=== PATIENT | female | born 1960 | race Caucasian/White ===

== ENCOUNTER 2016-10-17 02:18 | Inpatient (IN) ==
[2016-10-12 15:59] LABS: MANUAL DIFF NEEDED? NO; URINE SOURCE CLEAN CATCH
[2016-10-12 16:02] LABS: BILIRUBIN URINE NEGATIVE (NEGATIVE); BLOOD URINE NEGATIVE (NEGATIVE); COLOR YELLOW; GLUCOSE URINE NEGATIVE (NEGATIVE); LEUKOCYTES URINE NEGATIVE (NEGATIVE); NITRITE URINE NEGATIVE (NEGATIVE); PH URINE 5.5; PROTEIN URINE TRACE mg/dL (NEGATIVE); SP GRAVITY URINE 1.029; TURBIDITY URINE HAZY (CLEAR); URINE MICRO REVIEW NEEDED? YES; UROBILINOGEN URINE NORMAL (NORMAL)
[2016-10-12 16:04] LABS: BASO% 0.9 % (0.0-0.8); EOS# 0.22 X1000 (0.0-0.7); EOS% 3.2 % (0.0-10.0); HEMATOCRIT 34.7 % (37.0-47.0); HEMOGLOBIN 11.3 g/dL (12.0-16.0); LYMPH# 2.12 X1000 (1.2-3.4); LYMPH% 30.6 % (20.5-51.1); MCH 26.6 PG (27-31); MCHC 32.6 g/dL (33-37); MCV 81.6 FL (81-99); MONO# 0.55 X1000 (0.11-0.59); MONO% 7.9 % (1.7-9.3); MPV 10.8 FL (7.4-10.4); NEUT% 57.4 % (42.2-75.2); PLT 326 X1000 (130-400); RBC 4.25 XMIL (4.2-5.4)
[2016-10-12 16:06] LABS: UR EPITHELIAL CELLS <10 /HPF (<10); URINE BACTERIA 1+ /HPF; URINE RBC <10 /HPF (<10); URINE WBC <10 /HPF (<10)
[2016-10-12 16:08] LABS: PROTIME 10.5 Seconds (9.2-11.7)
[2016-10-12 16:18] LABS: AGAP 13; BUN 17 mg/dL (8-22); CALCIUM 9.6 mg/dL (8.8-10.2); CHLORIDE 102 mmol/L (98-107); COSMO 281; SODIUM 140 mmol/L (136-145); TCO2 25 mmol/L (25-35)
--- NOTE | 2016-10-12 16:22 | EKG Report ---
Test Performed on : 10/12/2016 3:35:52 PM Test Reason : PAT Blood Pressure : / mmHG Vent. Rate : 071 BPM Atrial Rate : 071 BPM P-R Int : 108 ms QRS Dur : 076 ms QT Int : 384 ms P-R-T Axes : 002 -01 004 degrees QTc Int : 417 ms Sinus rhythm. with short [place] Otherwise normal ECG No previous ECGs available Confirmed by Jorge RODRIGUEZ, Alex Ruiz ([id number]) on 10/14/2016 9:55:54 AM
[2016-10-12 16:33] LABS: URINE CRYSTALS CA OXALATE PRESENT
[2016-10-17] MEDS ORDERED: COLACE ONE ×2 (05:40→06:23)
[2016-10-17] MEDS ORDERED: LYRICA ONE (05:41)
[2016-10-17] MEDS ORDERED: REGLAN ONE ×2 (05:41→05:42)
[2016-10-17] MEDS ORDERED: PEPCID ONE (05:41)
[2016-10-17] MEDS ORDERED: LR 1,000 ML ONE (05:41)
[2016-10-17] MEDS ORDERED: KEFZOL 2 GM/D5W 2 GM/50 ML IVPB ONE (05:44)
[2016-10-17] MEDS ORDERED: NEOSPORIN G.U. IRRIGANT ONE (06:37)
[2016-10-17] MEDS ORDERED: MARCAINE 0.25% PF/EPI 1:200,000 ONE (06:38)
[2016-10-17] MEDS ORDERED: VANCOMYCIN ONE (06:38)
[2016-10-17] MEDS ORDERED: SODIUM CHLORIDE 0.9% ONE (06:38)
[2016-10-17] MEDS ORDERED: TORADOL ONE (06:38)
[2016-10-17] MEDS ORDERED: DURAMORPH ONE (06:38)
[2016-10-17] MEDS ORDERED: CLAVE SECONDARY SET 11953 ONE (06:39)
[2016-10-17] MEDS ORDERED: CYKLOKAPRON 1,000 MG/NS 1,000 MG/100 ML IVPB ONE ×2 (06:39)
[2016-10-17] MEDS ORDERED: EXPAREL 1.3% ONE (06:39)
[2016-10-17] MEDS ORDERED: DIPRIVAN 1% 0 MG/0 ML BOTTLE ONE (06:46)
--- NOTE | 2016-10-17 07:18 | HISTORY AND PHYSICAL ---
CHIEF COMPLAINT: Left knee pain. HISTORY OF PRESENT ILLNESS: is a 55-year-old, white female who has experienced progressive left knee pain for some time. No history of injury. Her pain is worse with weightbearing and activity. Radiographic evaluation of the left knee reveals findings consistent with advanced degenerative joint disease. Despite conservative therapy, she still has a significant reduction in her ability to perform her normal daily activities. At this time, she will be admitted for a left total knee arthroplasty. PRIMARY CARE PROVIDER: Jaison Modi MD. ALLERGIES: 1. Sulfa. 2. Adhesive tape. PAST MEDICAL HISTORY: 1. Osteoarthritis. 2. Hypertension. 3. Hypothyroidism. 4. Obesity. 5. Lower extremity edema. PAST SURGICAL HISTORY: 1. Hysterectomy. 2. Cholecystectomy. 3. Gastric bypass surgery. SOCIAL HISTORY: The patient is a nonsmoker. She is and maintains a home with her . MEDICATIONS: 1. Potassium 20 mEq daily. 2. Synthroid 50 mcg by mouth daily. 3. Lasix 20 mg daily. 4. Ergocalciferol 1.25 mg daily. 5. Vitamin B12 injection 1000 mcg as directed. 6. Amlodipine/valsartan/hydrochlorothiazide combination 10/160/25 one tablet by mouth daily. REVIEW OF SYSTEMS: HEENT: No known history of stroke or cerebrovascular disease. She is treated for hypothyroidism. Cardiac: She is treated for hypertension. No history of coronary artery disease. Denies chest pain or other anginal equivalents. Pulmonary: The patient is a nonsmoker with no chronic lung disease. Gastrointestinal: She has previously had a gastric bypass surgery. Genitourinary: Denies recent kidney or bladder infection or dysfunction. Neurological: No extremity radicular pain, weakness, or paresthesia. Musculoskeletal: She is here for management of her left knee arthritis. Other: She is treated for obesity. PHYSICAL EXAMINATION: GENERAL: AO x3. No acute distress. She is able to answer all questions. HEENT: Head is normocephalic and atraumatic. Pupils are equal, round, react to light. Nares are patent. Throat without exudate. NECK: Supple. HEART: Regular rate and rhythm. No murmurs, gallops, or rubs. LUNGS: Clear to auscultation bilaterally. ABDOMEN: Round. Bowel sounds are present. GENITOURINARY: Not examined. NEUROLOGICAL: Gross motor function is intact, as well as sensation. MUSCULOSKELETAL: Left knee, no deformity, edema, or ecchymosis is noted. Neurovascular status intact with good peripheral pulse. IMPRESSION: Degenerative joint disease of the left knee. PLAN: Left total knee arthroplasty. The risks and benefits of surgery were explained to the patient including the risks of anesthesia, , bleeding, infection, damage to tendons, ligaments, nerves, and blood vessels. The possibility of blood clots and other imponderables were discussed, and the patient wishes to proceed with operative management at this time. Dictated by MANE Baer for Monty Sandhu MD cc: MANE Baer MD
[2016-10-17] MEDS ORDERED: NORCO-10 PO PRN (07:19)
[2016-10-17] MEDS ORDERED: MORPHINE IV PRN (07:20)
[2016-10-17] MEDS ORDERED: NORVASC PO SCH (07:30)
[2016-10-17 08:47] LABS: URINE SOURCE CATH
[2016-10-17 08:58] LABS: BILIRUBIN URINE NEGATIVE (NEGATIVE); BLOOD URINE NEGATIVE (NEGATIVE); COLOR YELLOW; GLUCOSE URINE NEGATIVE (NEGATIVE); LEUKOCYTES URINE NEGATIVE (NEGATIVE); NITRITE URINE NEGATIVE (NEGATIVE); PH URINE 5.5; PROTEIN URINE NEGATIVE (NEGATIVE); SP GRAVITY URINE 1.023; UROBILINOGEN URINE NORMAL (NORMAL)
[2016-10-17] MEDS ORDERED: ERGOCALCIFEROL 1.25 MG PO SCH (09:00)
[2016-10-17 09:06] LABS: TURBIDITY URINE CLEAR (CLEAR)
[2016-10-17 09:07] LABS: URINE MICRO REVIEW NEEDED? YES
[2016-10-17 09:15] LABS: UR EPITHELIAL CELLS <10 /HPF (<10); URINE BACTERIA NEGATIVE /HPF; URINE WBC <10 /HPF (<10)
[2016-10-17 09:16] LABS: URINE CRYSTALS CA OXALATE PRESENT
[2016-10-17] MEDS ORDERED: FENTANYL ONE (09:59)
[2016-10-17] MEDS ORDERED: DIPRIVAN 1% ONE (09:59)
[2016-10-17] MEDS ORDERED: ZOFRAN ONE (10:20)
[2016-10-17] MEDS ORDERED: QUELICIN (DOSE) ONE (10:20)
[2016-10-17] MEDS ORDERED: DECADRON ONE (10:20)
[2016-10-17] MEDS ORDERED: XYLOCAINE-MPF 2% ONE (10:20)
[2016-10-17] MEDS ORDERED: LR 2,000 ML ONE (10:20)
[2016-10-17] MEDS ORDERED: OFIRMEV 1000 MG/ISOTONIC SOLN 1,000 MG/100 ML BOTTLE ONE (10:20)
[2016-10-17] MEDS ORDERED: ROBINUL ONE (10:20)
[2016-10-17] MEDS: NS 1,000 ML ONE ×2 (10:34→11:42)
--- NOTE | 2016-10-17 10:48 | Diag Imaging Result Document ---
PROCEDURE NAME: KNEE 1-2 VIEWS-LEFT - 10/17/2016 LEFT KNEE, TWO VIEWS: FINDINGS: There has been recent orthopaedic replacement of the left knee. There is good alignment to the femoral and tibial components. There are anterior skin greta and there is a superior surgical drain. No fracture. No dislocation. IMPRESSION: Good alignment following orthopaedic replacement of the left knee.
--- NOTE | 2016-10-17 11:18 | OPERATIVE NOTE ---
PROCEDURE DATE: 10/17/2016 PREOPERATIVE DIAGNOSIS: Degenerative joint disease, left knee. POSTOPERATIVE DIAGNOSIS: Degenerative joint disease, left knee. PROCEDURE: Left total knee replacement. SURGEON: Beau Sandhu MD. TEXTURING MACHINE FIXER: HILLARY Andrea. ANESTHESIA: General. COMPLICATION: None. PROCEDURE IN DETAIL: A 55-year-old female with DJD about the left knee presents for left knee replacement. Risks, benefits, and no guarantees were discussed, and she is willing to proceed. She was taken the operating room and satisfactory anesthesia obtained. The left knee was prepped and draped in usual sterile fashion. A time-out was taken to confirm operative site, procedure, and patient. The left leg was wrapped with an Esmarch and tourniquet inflated to 400 mmHg. A midline incision was made over the front of the knee, followed by a quadriceps tendon-sparing arthrotomy. The patella was everted and resurfaced with freehand technique and sized to a size 32 dome patella. The drill paddle was used to prepare for the patellar implant. With the knee flexed, an intramedullary hole was made in the distal femur and the distal femoral cutting block secured in 5 degrees of valgus. Distal femoral resection was made. Tibial resection was then made just for fresh cut and due to the softness of the bone, decision made to proceed with a stemmed prosthesis on both the femoral and tibial side. The Sigma Arimazuy system was utilized and the tibia reamed up to a size 16 reamer. The tibia was then broached up to a 45 metaphyseal MBT tibial sleeve. A size 2.5 tibial base plate was then selected and the tibial implant trial made with a 16 x 75 stem attached to the 45 metaphyseal sleeve and a 2.5 rotating platform baseplate. After preparation of the tibia, the spacer block was used to position the femoral cutting block in proper rotation and the femoral cutting block attached. The femur was reamed up to an 18 stem and then broached with the metaphyseal femoral sleeve up to a 48 sleeve. Distal femoral cutting block was then secured and the anterior, posterior, and chamfer cuts sequentially made in the primary position. The femur was sized to a 2.5, TC3 posterior stabilized femoral stem. The femoral component consisted of a 2.5 left posterior stabilized Sigma TC3 femoral component, connected to a 75 x 18 stem with a 48 femoral porous sleeve. A 5-degree adapter bolt was utilized for this. Trialing was then undertaken with a 12.5, thick poly with good range of motion and stability. The trial implants were removed and the permanent implants built on the back table and secured. The bony surfaces were thoroughly irrigated with pulsatile lavage. Cement was then used to cement the tibial and femoral components in place, followed by the patella. Excess cement was removed with a [place] elevator. While the joint cement hardened, the joint capsule was injected with Exparel for pain management and a Hemovac drain placed. The arthrotomy was then copiously irrigated with irrigant and a 12.5 rotating platform poly secured in the tibial tray and the knee reduced. Final range of motion was 0-120 degrees with midline patellar tracking. The arthrotomy was then closed over the drain with #1 Vicryl in the arthrotomy, 2-0 Vicryl in the subcutaneous tissue, and skin greta on the skin edges. Sterile dressings completed the closure and the patient was recovered from anesthesia and transferred to the recovery room in stable condition. No intraoperative complications were noted. Instrument count and sponge count were correct at time of closure. cc: Monty Sandhu MD
[2016-10-17] MEDS: COLACE PO SCH ×2 (11:40→20:37)
[2016-10-17] MEDS: SYNTHROID PO SCH (11:41)
[2016-10-17] MEDS: LASIX PO SCH (11:41)
[2016-10-17] MEDS: KLOR-CON PO SCH (11:41)
[2016-10-17] MEDS: NORCO-10 PO PRN ×2 (14:32→20:37)
[2016-10-17] MEDS: KEFZOL 1 GM/D5W 1 GM/50 ML IVPB IV SCH ×2 (15:50→23:28)
[2016-10-17] MEDS: NS 1,000 ML IV SCH ×2 (18:34→20:38)
[2016-10-17] MEDS: PERIDEX MT SCH (20:37)
[2016-10-18] MEDS: NS 1,000 ML IV SCH ×3 (04:31→21:06)
[2016-10-18] MEDS: XARELTO PO SCH (05:49)
[2016-10-18] MEDS: MORPHINE IV PRN ×3 (05:49→10:44)
[2016-10-18 06:33] LABS: HEMATOCRIT 29.8 % (37.0-47.0); HEMOGLOBIN 9.3 g/dL (12.0-16.0)
[2016-10-18 06:49] LABS: AGAP 14; BUN 15 mg/dL (8-22); CALCIUM 8.5 mg/dL (8.8-10.2); CHLORIDE 99 mmol/L (98-107); COSMO 278; POTASSIUM 4.6 mmol/L (3.5-5.1); SODIUM 137 mmol/L (136-145); TCO2 24 mmol/L (25-35)
[2016-10-18] MEDS: KLOR-CON PO SCH (09:09)
[2016-10-18] MEDS: COLACE PO SCH ×2 (09:09→21:06)
[2016-10-18] MEDS: SYNTHROID PO SCH (09:09)
[2016-10-18] MEDS: PERIDEX MT SCH ×2 (09:09→21:06)
[2016-10-18] MEDS: LASIX PO SCH ×2 (09:10→09:14)
[2016-10-18] MEDS: ANTIVERT PO PRN (13:21)
[2016-10-18] MEDS: PERCOCET-10 PO PRN ×2 (14:12→21:07)
[2016-10-18] MEDS: PHENERGAN PO PRN ×2 (15:27→21:06)
[2016-10-19] MEDS: PERCOCET-10 PO PRN ×5 (01:48→22:26)
[2016-10-19] MEDS: PHENERGAN PO PRN ×4 (01:49→18:14)
[2016-10-19 06:00] LABS: HEMATOCRIT 26.4 % (37.0-47.0); HEMOGLOBIN 8.1 g/dL (12.0-16.0)
[2016-10-19] MEDS: NS 1,000 ML IV SCH (06:18)
[2016-10-19] MEDS: XARELTO PO SCH (06:59)
[2016-10-19] MEDS ORDERED: HYDROCHLOROTHIAZIDE PO SCH (07:45)
[2016-10-19] MEDS ORDERED: DIOVAN PO SCH (07:45)
[2016-10-19] MEDS: LASIX PO SCH ×2 (09:33→09:35)
[2016-10-19] MEDS: COLACE PO SCH ×2 (09:33→22:26)
[2016-10-19] MEDS: SYNTHROID PO SCH (09:33)
[2016-10-19] MEDS: KLOR-CON PO SCH (09:33)
[2016-10-19] MEDS: PERIDEX MT SCH ×2 (09:34→22:26)
[2016-10-19 11:29] LABS: MANUAL DIFF NEEDED? NO
[2016-10-19 11:43] LABS: BASO% 0.5 % (0.0-0.8); EOS% 2.6 % (0.0-10.0); HEMATOCRIT 25.6 % (37.0-47.0); HEMOGLOBIN 7.9 g/dL (12.0-16.0); IMM GRAN# 0.04 X1000 (0.0-0.04); IMM GRAN% 0.3 % (0.0-0.5); LYMPH# 1.47 X1000 (1.2-3.4); LYMPH% 12.5 % (20.5-51.1); MCH 25.9 PG (27-31); MCHC 30.9 g/dL (33-37); MCV 83.9 FL (81-99); MONO# 1.23 X1000 (0.11-0.59); MONO% 10.5 % (1.7-9.3); MPV 10.4 FL (7.4-10.4); NEUT% 73.6 % (42.2-75.2); PLT 226 X1000 (130-400); RBC 3.05 XMIL (4.2-5.4)
[2016-10-19 11:51] LABS: ALBUMIN 3.4 g/dL (3.5-5.0); CALCIUM 8.1 mg/dL (8.8-10.2); POTASSIUM 4.3 mmol/L (3.5-5.1); TOTAL BILIRUBIN 0.67 mg/dL (0.20-1.00); TOTAL PROTEIN 6.1 g/dL (6.3-8.3)
[2016-10-19] MEDS ORDERED: DUONEB (A & A) INH PRN (12:58)
[2016-10-19] MEDS ORDERED: VANCOMYCIN IV PER PHARMACY MISC SCH (13:00)
--- NOTE | 2016-10-19 13:57 | Diag Imaging Result Document ---
PROCEDURE NAME: CHEST-PORTABLE - 10/19/2016 SINGLE FRONTAL RADIOGRAPH OF THE CHEST: COMPARISON: None available. FINDINGS: Inspiration is suboptimal. The lungs are grossly clear. There is no definite pleural fluid collection. The cardiac silhouette appears prominent, but this may be due to magnification from AP technique. Central vasculature is unremarkable. IMPRESSION: Low lung volumes and somewhat prominent cardiac silhouette that may be due to magnification.
[2016-10-19 14:08] LABS: ALLEN TEST NO; BE 0.1 mmoll (-3.0-3.0); BLOOD TYPE ARTERIAL; DRAW SITE R BRACHIAL; METHB 1.4 % (0.0-1.5); O2(CT) 10.5 mL/dL (15.0-23.0); PCO2(98.6) 39 mmHg (35-45); PO2(98.6) 74 mmHg (60-100); SAMPLE BLOOD; SAO2 97.7 % (95.0-100.0); THB 7.8 g/dL (11.5-17.4); pH(98.6) 7.41 (7.35-7.45)
[2016-10-19 14:09] LABS: MODALITY CANNULA
--- NOTE | 2016-10-19 14:35 | CONSULTATION ---
DATE OF CONSULTATION: 10/19/2016 CONSULTING PHYSICIAN: Dr. Sandhu with orthopedics. REASON FOR CONSULTATION: Fever and hypoxia. HISTORY OF PRESENT ILLNESS: is a 55-year-old female with a history of morbid obesity, hypertension, hypothyroidism, who is status post left total knee arthroplasty by Dr. Sandhu on 10/17/2016. She began having fevers last night around 9 o'clock. She measured 101 degrees Fahrenheit with a heart rate of 117. Currently her temperature is 101.4 degrees with a heart rate of 119, O2 saturations 92% on 3 L. Reports that she was also hypoxic this morning with an O2 saturation in the high 70s. The patient herself reports a little bit of shortness of breath and she has also been coughing up green sputum. She denies any overt chest pain. She has left lower extremity pain secondary to surgery, but nothing acutely worse. No pain or swelling in the right lower extremity. She denies any abdominal pain, nausea, or vomiting. We ordered blood work and she does have some mild leukocytosis noted to be 11.73, and she also has worsening anemia. Currently, she is resting in bed comfortably without distress. We have been asked to follow along for further treatment and evaluation. PAST MEDICAL HISTORY: 1. Morbid obesity. 2. Hypothyroidism. 3. Hypertension. 4. Osteoarthritis. 5. Chronic lower extremity edema on Lasix. PAST SURGICAL HISTORY: Hysterectomy, cholecystectomy, gastric bypass surgery and now with left knee arthroplasty. HOME MEDICATIONS: 1. Vitamin D 1.25 mg daily. 2. Lasix 20 mg daily. 3. Synthroid 50 mcg daily. 4. Potassium 20 mEq p.o. daily. 5. Vitamin B 12 1000 mcg as directed. 6. Amlodipine/valsartan/hydrochlorothiazide combination as directed daily. SOCIAL HISTORY: Patient denies tobacco, alcohol or drug use. She is . is at the bedside. FAMILY HISTORY: Noncontributory. REVIEW OF SYSTEMS: Fourteen-point review of systems obtained and found to be negative with the exception of the HPI. PHYSICAL EXAMINATION: Vital Signs: Blood pressure is 113/58, heart rate 119, respiratory rate is 17, O2 saturation 92% on 3 L, and temperature is 101.4 degrees. General: This is a morbidly obese, female, lying in hospital bed in no acute distress. Neurologic: She is awake, alert and oriented. She follows commands without focal deficits. HEENT: Head is atraumatic, normocephalic. Her pupils are equal, round, reactive to light. Oral mucosa is moist. Neck: Trachea is midline. No JVD or carotid bruits. Chest: Diminished at the bases, but otherwise clear to auscultation bilaterally. CV: Tachy, but regular. S1, S2 is noted. No murmurs, gallops, clicks, rubs. GI: Soft, nondistended, nontender. Bowel sounds positive. Extremities: Left lower extremity is neurovascular intact with a surgical dressing. Clean, dry, and intact. His right lower extremity has trace edema. Pulses palpable. DIAGNOSTIC DATA: Chest x-ray is pending. WBC 11.73, hemoglobin 7.9, hematocrit 25.6, platelet count is 226. Sodium 134, potassium 4.3, chloride 98, CO2 23, anion gap 13, BUN 20, creatinine 1, glucose 124, calcium 8.1, bilirubin is 0.67. AST 22, ALT 18, alkaline phosphatase 113, protein 6.1. ASSESSMENT AND PLAN: 1. Suspected sepsis: Patient meets criteria with tachycardia, leukocytosis and fever, source is likely to be pulmonary in nature. We will go ahead and treat her with broad-spectrum antibiotics until we can get a better look at her lungs with a chest x-ray or a CT. We will start vancomycin and Zosyn to cover typical organisms. 2. Hypoxic respiratory failure: Likely bronchitis versus pneumonia. Possibly obesity hypoventilation syndrome. We are treating with antibiotics, breathing treatments and aggressive pulmonary toilet. 3. Lower respiratory infection versus bronchitis: As above. 4. Status post left knee arthroplasty: Per Dr. Sandhu and his team. Continue early ambulation, deep vein thrombosis prophylaxis and incentive spirometry. 5. Hypothyroidism: Continue her Synthroid and check a thyroid stimulating hormone. 6. Hypertension: Chronic, stable, continue home medication. 7. Deep vein thrombosis prophylaxis: Provided with Xarelto. Further recommendations to follow. Would like to thank you for this consultation. We will continue to follow along with you. Dictated by HILLARY Nagel for Rah Casarez MD cc: HILLARY Nagel MD John R. Riehl, MD
--- NOTE | 2016-10-19 14:57 | Diag Imaging Result Document ---
PROCEDURE NAME: CHEST-2 VIEWS - 10/19/2016 AP AND LATERAL RADIOGRAPH OF THE CHEST: COMPARISON: 10/19/2016. FINDINGS: There is a better inspiration. The lungs appear to be clear. There is no definite pleural fluid collection. Cardiac silhouette and central vasculature are stable. IMPRESSION: Stable chest with no evidence of acute pathology.
[2016-10-19] MEDS: ZOSYN 3.375 GM/NS 3.375 GM/50 ML IVPB IV SCH (15:24)
[2016-10-19] MEDS: DUONEB (A & A) INH SCH ×3 (15:38→23:45)
[2016-10-19] MEDS: VANCOMYCIN 2 GM in NS 500 ML IV SCH (16:41)
[2016-10-19] MEDS: MORPHINE IV PRN (18:13)
[2016-10-20] MEDS: ZOSYN 3.375 GM/NS 3.375 GM/50 ML IVPB IV SCH ×4 (00:02→20:05)
[2016-10-20] MEDS: NORCO-10 PO PRN (00:02)
[2016-10-20] MEDS: DUONEB (A & A) INH SCH ×6 (03:50→23:32)
[2016-10-20] MEDS: NS 1,000 ML IV SCH ×2 (04:10→07:56)
[2016-10-20 05:50] LABS: HEMATOCRIT 23.4 % (37.0-47.0); HEMOGLOBIN 7.1 g/dL (12.0-16.0); MCHC 30.3 g/dL (33-37); MCV 85.7 FL (81-99); MPV 11.2 FL (7.4-10.4); RBC 2.73 XMIL (4.2-5.4)
[2016-10-20 06:07] LABS: AGAP 12; BUN 23 mg/dL (8-22); CALCIUM 8.2 mg/dL (8.8-10.2); CHLORIDE 100 mmol/L (98-107); COSMO 278; POTASSIUM 4.1 mmol/L (3.5-5.1); SODIUM 136 mmol/L (136-145); TCO2 24 mmol/L (25-35)
[2016-10-20] MEDS: XARELTO PO SCH (06:36)
[2016-10-20] MEDS: KLOR-CON PO SCH (08:02)
[2016-10-20] MEDS: SYNTHROID PO SCH (08:02)
[2016-10-20] MEDS: PERIDEX MT SCH ×2 (08:02→20:05)
[2016-10-20] MEDS: COLACE PO SCH ×2 (08:02→20:05)
[2016-10-20] MEDS: LASIX PO SCH (08:02)
[2016-10-20] MEDS: PHENERGAN PO PRN ×3 (10:18→20:06)
[2016-10-20] MEDS: PERCOCET-10 PO PRN ×3 (10:18→20:04)
--- NOTE | 2016-10-20 11:38 | PROGRESS NOTE ---
DATE: 10/20/2016 SUBJECTIVE: Today refers to be doing a little better. Fever has subsided. She continues to have significant cough with yellowish sputum production. OBJECTIVE: Vital Signs: Blood pressure is 110/59, pulse of 100, respirations 20, and temperature is 98.3 degrees. The patient did have a temperature of 100.1 degrees at about 1000 hours this morning and had 102.1 yesterday at 1544 hours. General: is a 55-year -old female, morbidly obese, BMI 49.4. She was in bed, in no distress. HEENT: Mucosa is pink and moist. Anicteric. Acyanotic. Neck: Supple. Chest: Air entry is bilaterally reduced. There is some faint diffuse bilateral end-expiratory wheezing. No crepitations. Cardiovascular: Regular rate and rhythm. Abdomen: Soft, distended, nontender. Bowel sounds are present. Extremities: No pedal edema. The left knee does have recent changes. It has a surgical wound, which is affronted with clips. It looks clean. There are not any exudation. It is not erythematous. It is not warm. LABORATORY DATA: WBC is 10.06, hemoglobin 7.1, platelet count of 200,000. Chemistries reviewed, completely normal. A chest x-ray done was completely normal. Nothing acute. ASSESSMENT AND PLAN: 1. Pyrexia. Etiology is not apparently clear; however, patient has associated respiratory symptoms. I think she probably has an underlying bronchitis versus pneumonia. The patient is currently on antibiotics, and we would continue with the current regimen. We will do a CT scan of the chest since the chest x-ray was completely unremarkable to make sure there is not any hidden obvious pathology that needs to be addressed. 2. Recent left knee arthroplasty, noted. 3. Morbid obesity. 4. Hypothyroidism. 5. Hypertension. 6. Anemia of possibly acute blood loss from surgery. The patient is getting 1 pack red blood cells transfused. So today referred to be doing a little better. Fever is improving. We will continue with the current antibiotic coverage. We will do a CT scan of the lungs and follow it up accordingly. cc: MD ALYSSIA Milner
[2016-10-20] MEDS: VANCOMYCIN 2 GM in NS 500 ML IV SCH (16:51)
--- NOTE | 2016-10-20 23:48 | Diag Imaging Result Document ---
PROCEDURE NAME: CT THORAX W/CONTRAST - 10/20/2016 CT THORAX WITH IV CONTRAST: COMPARISON: None available. FINDINGS: There is patchy mild infiltrate in the right middle lobe that is probably infectious. There is minimal subsegmental atelectasis at the lung bases bilaterally. There is no pleural fluid collection and there is no pneumothorax. There are calcified mediastinal and right hilar lymph nodes indicating prior granulomatous disease. There is no evidence of significant lymphadenopathy, otherwise. The heart is borderline prominent. There is minimal atherosclerotic calcification at the aortic arch. There is low-dense thickening involving both adrenal glands that statistically most likely represents adrenal adenomas or hyperplasia. There are few metallic clips in the mesentery of the upper left abdomen. There is evidence of prior gastric surgery. IMPRESSION: 1. Patchy mild consolidation in the right middle lobe that is probably infectious. 2. Other incidental/nonacute findings detailed above.
[2016-10-21] MEDS: PERCOCET-10 PO PRN ×4 (01:34→19:58)
[2016-10-21] MEDS: PHENERGAN PO PRN ×4 (01:35→19:58)
[2016-10-21] MEDS: DUONEB (A & A) INH SCH ×6 (03:52→23:25)
[2016-10-21] MEDS: ZOSYN 3.375 GM/NS 3.375 GM/50 ML IVPB IV SCH ×4 (04:17→19:58)
[2016-10-21] MEDS: XARELTO PO SCH (05:48)
[2016-10-21 05:57] LABS: HEMOGLOBIN 8.1 g/dL (12.0-16.0); MCH 26.7 PG (27-31); MCHC 31.2 g/dL (33-37); MCV 85.8 FL (81-99); MPV 11.3 FL (7.4-10.4); RBC 3.03 XMIL (4.2-5.4)
[2016-10-21 06:14] LABS: AGAP 13; BUN 11 mg/dL (8-22); CALCIUM 8.3 mg/dL (8.8-10.2); CHLORIDE 101 mmol/L (98-107); COSMO 274; POTASSIUM 4.1 mmol/L (3.5-5.1); SODIUM 137 mmol/L (136-145); TCO2 23 mmol/L (25-35)
[2016-10-21] MEDS: ANTIVERT PO PRN (07:47)
[2016-10-21] MEDS: PERIDEX MT SCH ×2 (10:25→19:58)
[2016-10-21] MEDS: KLOR-CON PO SCH (10:25)
[2016-10-21] MEDS: SYNTHROID PO SCH (10:26)
[2016-10-21] MEDS: LASIX PO SCH (10:26)
[2016-10-21] MEDS: COLACE PO SCH ×2 (10:26→20:01)
--- NOTE | 2016-10-21 11:15 | PROGRESS NOTE ---
DATE: 10/21/2016 SUBJECTIVE: is seen for postop care of her total knee replacement. She still is mobilizing slowly. Currently her hematocrit is up to 26. The incision is clean and dry. Currently she has had several stable vital signs. She underwent a CT of the chest last night just to rule out postop pneumonia. This did show some consolidation right middle lobe. It appears to be possible pneumonia. We will defer this to the hospitalist. DISPOSITION: We will keep her in the hospital today and consider discharge tomorrow. cc: MD Rah Cisneros MD
[2016-10-21] MEDS: NS 1,000 ML IV SCH (12:12)
[2016-10-21] MEDS: VANCOMYCIN 2 GM in NS 500 ML IV SCH (16:26)
--- NOTE | 2016-10-21 17:11 | PROGRESS NOTE ---
DATE: 10/21/2016 SUBJECTIVE: Today refers to be doing a whole lot better. She is coughing up some dark bloody expectoration but her breathing is a whole lot better. OBJECTIVE: Vital signs: Blood pressure is 114/60, pulse of 95, respirations 18, temperature is 98.1 degrees. General: 55-year-old female. She is in bed, does not seems to be in any distress. HEENT: Mucosa is pink and moist. Anicteric. Acyanotic. Neck: Supple. Chest: Good air entry bilateral. There is just a mild right lower lobe crepitation but no rhonchi, no wheezing today. Cardiovascular: Regular rate and rhythm. Abdomen: Soft. Bowel sounds are present. Extremities: No pedal edema. Left knee has recent surgery which looks clean. There is no exudation. LABORATORY DATA: WBC 7.53, hemoglobin is 8.1, platelet count of 199,000. Chemistry is reviewed, completely normal. A CT scan of the chest which was done yesterday shows patchy mild consolidation in the right middle lobe that is probably infectious. ASSESSMENT: 1. Right middle lobe pneumonia. Patient is currently on intravenous antibiotics. She seems to be doing a whole lot better. Will from medical standpoint anytime it is okay with orthopedics we can send her home. Will probably be able to do levofloxacin with doxycycline to cover both Pseudomonas and MRSA. 2. Recent left knee arthroplasty noted. 3. Hypothyroidism. Will continue with Synthroid. 4. Hypertension stable. 5. Anemia secondary to blood loss from surgery. Patient is status post 1 packed red blood cells transfusion. Hemoglobin and hematocrit continue to be stable. PLAN: So in general is doing a whole lot better. I think from medical standpoint will be able to send her home tomorrow on levofloxacin with doxycycline to get a total of 10 days of antibiotics. She has so far gotten vancomycin and Zosyn. Today is day 3 on IV antibiotics. cc: Rah Casarez MD
[2016-10-22] MEDS: PERCOCET-10 PO PRN ×2 (02:07→10:20)
[2016-10-22] MEDS: PHENERGAN PO PRN ×2 (02:07→10:21)
[2016-10-22] MEDS: ZOSYN 3.375 GM/NS 3.375 GM/50 ML IVPB IV SCH ×2 (02:11→06:47)
[2016-10-22] MEDS: PERIDEX MT SCH ×2 (02:50→08:05)
[2016-10-22] MEDS: NS 1,000 ML IV SCH (02:50)
[2016-10-22] MEDS: DUONEB (A & A) INH SCH ×3 (03:42→10:59)
[2016-10-22 06:15] LABS: HEMATOCRIT 25.5 % (37.0-47.0); HEMOGLOBIN 7.9 g/dL (12.0-16.0); MCH 26.3 PG (27-31)
[2016-10-22 06:29] LABS: AGAP 10; BUN 7 mg/dL (8-22); CALCIUM 8.3 mg/dL (8.8-10.2); CHLORIDE 104 mmol/L (98-107); COSMO 276; POTASSIUM 4.2 mmol/L (3.5-5.1); SODIUM 139 mmol/L (136-145); TCO2 25 mmol/L (25-35)
[2016-10-22] MEDS: XARELTO PO SCH (06:32)
[2016-10-22 07:38] VITALS: BP 95/49
[2016-10-22] MEDS: COLACE PO SCH (08:06)
[2016-10-22] MEDS: KLOR-CON PO SCH (08:06)
[2016-10-22] MEDS: LASIX PO SCH (08:06)
[2016-10-22] MEDS: SYNTHROID PO SCH (08:06)
[2016-10-22] MEDS ORDERED: DOXYCYCLINE PO SCH (09:00)
[2016-10-22] MEDS ORDERED: LEVAQUIN PO SCH (09:00)
--- NOTE | 2016-10-22 15:47 | PROGRESS NOTE ---
DATE: 10/22/2016 SUBJECTIVE: This morning, referred to be doing a whole lot better. No cough and no fever. She has already been seen by Orthopedics and there is a plan to get her discharged. On general exam, her vitals have been reviewed. They are stable and physical exam is unremarkable from yesterday's. LABORATORY WORK: The hemoglobin is 7.9, platelet count is 244,000. Chemistry is reviewed, completely normal. ASSESSMENT: 1. Right middle lobe pneumonia. Patient was on IV antibiotics. I did change this to levofloxacin and doxycycline p.o. 2. Recent left knee arthroplasty noted. 3. Hypothyroidism. 4. Hypertension. 5. Anemia, secondary to acute blood loss from surgery. PLAN: General, I think is relatively stable. She has been afebrile since 10/20/2016 and she is not coughing any more. I think she is medically stable to be discharged and I agree with the plan. cc: Rah Casarez MD
--- NOTE | 2016-10-22 21:04 | DISCHARGE SUMMARY ---
ADMISSION DATE: 10/17/2016 DISCHARGE DATE: 10/22/2016 ADMITTING DIAGNOSES: 1. Degenerative joint disease right knee. 2. Hypertension. 3. Hypothyroidism. 4. Obesity. 5. Lower extremity edema. DISCHARGE DIAGNOSIS: 1. Degenerative joint disease right knee. 2. Hypertension. 3. Hypothyroidism. 4. Obesity. 5. Lower extremity edema. 6. Postoperative pneumonia. 7. Acute blood loss anemia. ADMITTING HISTORY AND HOSPITAL COURSE: This is a 55-year-old female with DJD about the right knee was admitted for surgical knee replacement. She underwent a knee replacement on the day of admission without initial complication. Postoperatively, she developed some shortness of breath and chest congestion. Hospitalist consult was obtained and chest x-ray revealed a middle lobe postop pneumonia. She has been placed on appropriate antibiotics for this. She did have a drop in hematocrit due to acute blood loss anemia. She received 1 unit of blood for this. At the present time, she is significantly improved and mobilizing much better. She is discharged home today with home therapy and home medications. She is to follow up with me in roughly 1 week's time. Time of discharge, she is afebrile with stable vital signs. The incision about the knee replacement is clean and dry. There is no evidence of infection about the knee or DVT. DISCHARGE MEDICATIONS: Home medicines consisting of potassium 20 mEq daily, Synthroid 50 mcg daily, Lasix 20 mg daily, ergocalciferol 1.2 mg daily, vitamin B12 injections 1000 mg as needed, amlodipine/valsartan/hydrochlorothiazide combination 10/160/25 daily, [place] 10, 1-2 every 4 6 hours p.r.n. pain, doxycycline 100 mg b.i.d. for 10 days, Levaquin 500 mg daily for 10 days and Zaroxolyn 10 mg daily for 2 weeks. cc: MD Rah Cisneros MD
--- NOTE | 2016-10-25 20:40 | Extremity Venous Study ---
PROCEDURE NAME: Venous U/S Bilateral Legs - 10/19/2016 BILATERAL LOWER EXTREMITY VENOUS DUPLEX, AND COLOR FLOW IMAGING STUDY USING THE [facility] ELECTRONICSID E 9 ULTRASOUND SYSTEM WITH A 9 L-D TRANSDUCER: REFERRING PHYSICIAN: Monty Sandhu MD IDENTIFYING INFORMATION: Portable study. A 55-year-old female. TECHNIQUE: Sinan Porter RVT. INDICATION: 1. History of knee joint replacement. ICD 10 Z96.659. 2. Shortness of breath. ICD 10 R06.02. FINDINGS: The right common femoral vein its branches, deep and superficial femoral veins were satisfactorily imaged. They had flow through them and were compressible. Right popliteal vein and the deep veins below the right knee were all compressible and had flow through them. The superficial veins of the right lower extremity were compressible throughout their length. The left common femoral vein and its branches, deep and superficial femoral veins were also satisfactorily imaged. They had flow through them and were compressible. Left popliteal vein and the deep veins below the left knee were all compressible and had flow through them. The superficial veins of the left lower extremity were compressible throughout their length. INTERPRETATION: No evidence of acute deep or superficial venous thrombosis of the bilateral lower extremities. cc: MD Leonides Hernandez CRNP Raphael K. Quansah, MD
[2016-10-30] MEDS ORDERED: CYANOCOBALAMIN IM SCH (09:00)
== END 2016-10-22 13:35 | disposition home health service (06) ==
LOC: SURHOLD 02:18 → 4N 07:31
PROVIDERS: ADMIT Internal Medicine; ATTEND Orthopaedic Surgery Adult Reconstructive Orthopaedic Surgery